=== PATIENT | female | born 1975 | race Two or more races ===

== ENCOUNTER 2025-05-24 12:27 | Emergency (ER) | payer OTHER ==
[~2025-05-24] VITALS: Ht 160 cm; Wt 69.9 kg
[~2025-05-24 12:27] MED LIST: CYMBALTA60 MG PO; NEURONTIN800 MG PO; REQUIP0.25 MG PO; REQUIP1 MG PO; RESTORIL30 MG PO; TRAZODONE HCL50 MG PO
[2025-05-24 12:45] VITALS: BP 115/76; O2SAT 98
[2025-05-24] MEDS ORDERED: TRAMADOL HCL 50 MG TABLET PO ONE (14:30)
[2025-05-24] MEDS ORDERED: NORFLEX100MG PO (15:33)
== END 2025-05-24 15:40 | disposition home or self-care (01) ==
LOC: ER 12:28
DX: S09.8XXA Other specified injuries of head, initial encounter (principal); W19.XXXA Unspecified fall, initial encounter; Y93.89 Activity, other specified; Y92.098 Other place in other non-institutional residence as the place of occurrence of the external cause; Y99.8 Other external cause status; R51.9 Headache, unspecified; M54.2 Cervicalgia; M25.559 Pain in unspecified hip; E03.8 Other specified hypothyroidism